=== PATIENT | female | born 1955 | race Caucasian/White ===

== ENCOUNTER 2018-06-16 04:08 | Emergency (ER) | payer MEDICARE, MEDICAID ==
[~2018-06-16] VITALS: Ht 149.9 cm; Wt 67.1 kg
[2018-06-16] MEDS ORDERED: HYDROXYZINE HCL25 M1 PO (04:26)
[2018-06-16] MEDS ORDERED: AMBIEN 5 MG TABL5 M1 PO (04:26)
[2018-06-16] MEDS ORDERED: WELLBUTRIN SR150 MG PO (04:27)
[2018-06-16] MEDS ORDERED: PROTONIX40 M1 PO (04:28)
[2018-06-16] MEDS ORDERED: SYNTHROID50 MCG PO (04:29)
[2018-06-16] MEDS ORDERED: TESSALON PERLE100 MG PO (04:30)
[2018-06-16] MEDS ORDERED: PERCOCET PO (04:31)
[2018-06-16] MEDS ORDERED: ZYRTEC10 M5 PO (04:31)
[2018-06-16] MEDS ORDERED: BENADRYL25 MG PO (04:34)
[2018-06-16] MEDS ORDERED: ECOTRIN325 MG PO (04:34)
[2018-06-16] MEDS ORDERED: PROPRANOLOL 1010 MG PO (04:35)
[2018-06-16] MEDS ORDERED: ESKALITH CR450 MG PO (04:35)
[2018-06-16] MEDS ORDERED: TOPAMAX 25 MG T25 M1 PO (04:36)
[2018-06-16] MEDS ORDERED: ERGOCALCIFEROL PO (04:38)
[2018-06-16 04:43] LABS: URINE BILIRUBIN NEGATIVE (Negative); URINE BLOOD TRACE (Negative); URINE CLARITY CLEAR; URINE COLOR STRAW; URINE GLUCOSE-RANDOM NEGATIVE (Negative); URINE KETONES 1+ (Negative); URINE LEUKOCYTES-REFLEX NEGATIVE (Negative); URINE NITRITE-REFLEX NEGATIVE (Negative); URINE PROTEIN NEGATIVE (Negative); URINE SPECIFIC GRAVITY <= 1.005 (1.005-1.030); URINE UROBILINOGEN 0.2 E.U./dl (0.2-1.0)
[2018-06-16] MEDS ORDERED: SENNA S TABLET1 EACH PO (04:44)
[2018-06-16] MEDS ORDERED: SINGULAIR 10 MG10 M1 PO (04:44)
[2018-06-16] MEDS ORDERED: MIRALAX17 GM PO (04:45)
[2018-06-16] MEDS ORDERED: TYLENOL325 MG PO (04:46)
[2018-06-16] MEDS ORDERED: CO Q-10100 MG PO (04:46)
[2018-06-16] MEDS ORDERED: LIPITOR 20 MG T20 M1 PO (04:47)
[2018-06-16 04:49] LABS: AMP/METHAMP Negative (Negative); BARBITURATES Negative (Negative); BENZODIAZEPINES Negative (Negative); COCAINE Negative (Negative); METHADONE Negative (Negative); OPIATES Negative (Negative); PCP Negative (Negative); THC Negative (Negative)
[2018-06-16] MEDS ORDERED: FOLBIC RF TABL1 EACH PO (04:49)
[2018-06-16 04:50] LABS: ABSOLUTE BASOPHILS 0.1 thou/uL (0.0-0.2); ABSOLUTE EOSINOPHILS 0.1 thou/uL (0.0-0.7); ABSOLUTE LYMPHOCYTES 1.5 thou/uL (0.8-5.3); ABSOLUTE MONOCYTES 0.5 thou/uL (0.0-1.2); ABSOLUTE NEUTROPHILS 5.9 thou/uL (1.6-8.1); BASOPHILS 1.3 %; EOSINOPHILS 1.1 %; HEMATOCRIT 33.7 % (37.0-47.0); HEMOGLOBIN 11.2 gm/dL (12.0-15.0); MCH 29.1 pg (26.0-34.0); MCHC 33.3 g/dL (28.0-37.0); MCV 87.3 fL (80.0-100.0); MONOCYTES 5.9 %; MPV 8.3 fl. (7.2-11.1); NUCLEATED RBCS 0 /100WBC; PLATELET COUNT* 260 thou/uL (150-400); POLYS 72.7 %; RBC 3.86 mil/uL (4.20-5.00); RDW-CV 13.5 % (10.5-14.5); WBC 8.1 thou/uL (4.0-11.0)
[2018-06-16 05:00] LABS: CALCIUM 9.7 mg/dL (8.5-10.1); CREATININE 1.2 mg/dL (0.6-1.3); POTASSIUM 3.2 mmol/L (3.5-5.1)
[2018-06-16 05:05] LABS: ALBUMIN 3.9 g/dL (3.4-5.0); TOTAL BILIRUBIN 0.4 mg/dL (<0.1-1.0)
[2018-06-16] MEDS ORDERED: BENTYL 10 MG CA10 M1 PO (05:09)
[2018-06-16 05:17] LABS: ALCOHOL < 10 mg/dL (<10); SALICYLATE < 2.8 mg/dL (2.8-20.0)
[2018-06-16 05:31] LABS: ACETAMINOPHEN < 2 ug/mL (10-30)
[2018-06-16 07:51] VITALS: BP 136/61
== END 2018-06-16 07:52 | disposition home or self-care (01) ==
LOC: M.ERS 04:08
PROVIDERS: Family Medicine
DX: F31.9 Bipolar disorder, unspecified (principal); E03.9 Hypothyroidism, unspecified; Z88.1 Allergy status to other antibiotic agents; Z88.5 Allergy status to narcotic agent

== ENCOUNTER → 2019-08-05 | Outpatient (CLI) | payer OTHER, MEDICAID ==
[~2019-08-05] MED LIST: AMBIEN 5 MG TABL5 M1 PO; BENADRYL25 MG PO; BENTYL 10 MG CA10 M1 PO; CO Q-10100 MG PO; ECOTRIN325 MG PO; ERGOCALCIFEROL PO; ESKALITH CR450 MG PO; FOLBIC RF TABL1 EACH PO; HYDROXYZINE HCL25 M1 PO; LIPITOR 20 MG T20 M1 PO; MIRALAX17 GM PO; PERCOCET PO; PROPRANOLOL 1010 MG PO; PROTONIX40 M1 PO; SENNA S TABLET1 EACH PO; SINGULAIR 10 MG10 M1 PO; SYNTHROID50 MCG PO; TESSALON PERLE100 MG PO; TOPAMAX 25 MG T25 M1 PO; TYLENOL325 MG PO; WELLBUTRIN SR150 MG PO; ZYRTEC10 M5 PO
== END ==
LOC: M.RAD 14:19
DX: Z12.31 Encounter for screening mammogram for malignant neoplasm of breast (principal)

== ENCOUNTER 2020-04-18 15:39 | Emergency (ER) | payer OTHER, MEDICAID ==
[~2020-04-18] VITALS: Ht 144.8 cm; Wt 68.0 kg
[2020-04-18 16:11] LABS: URINE BLOOD NEGATIVE (Negative); URINE CLARITY CLEAR; URINE COLOR YELLOW; URINE GLUCOSE-RANDOM NEGATIVE (Negative); URINE KETONES 1+ (Negative); URINE LEUKOCYTES-REFLEX NEGATIVE (Negative); URINE NITRITE-REFLEX NEGATIVE (Negative); URINE PROTEIN NEGATIVE (Negative); URINE SPECIFIC GRAVITY 1.025 (1.005-1.030)
[2020-04-18 16:13] LABS: ICTOTEST (BILI CONFIRMATORY) Negative (Negative); URINE BILIRUBIN 2+ (Negative)
[2020-04-18 16:19] LABS: AMP/METHAMP Negative (Negative); BARBITURATES Negative (Negative); BENZODIAZEPINES Negative (Negative); COCAINE Negative (Negative); METHADONE Negative (Negative); OPIATES Negative (Negative); PCP Negative (Negative); THC Negative (Negative)
[2020-04-18 16:23] LABS: ABSOLUTE BASOPHILS 0.1 thou/uL (0.0-0.2); ABSOLUTE EOSINOPHILS 0.1 thou/uL (0.0-0.7); ABSOLUTE LYMPHOCYTES 2.2 thou/uL (0.8-5.3); ABSOLUTE MONOCYTES 0.3 thou/uL (0.0-1.2); ABSOLUTE NEUTROPHILS 4.4 thou/uL (1.6-8.1); EOSINOPHILS 1.8 %; HEMATOCRIT 37.8 % (37.0-47.0); LYMPHOCYTES 31.1 %; MCHC 34.2 g/dL (28.0-37.0); MCV 87.7 fL (80.0-100.0); MONOCYTES 4.3 %; MPV 9.1 fl. (7.2-11.1); NUCLEATED RBCS 0 /100WBC; PLATELET COUNT* 223 thou/uL (150-400); POLYS 61.8 %; RBC 4.31 mil/uL (4.20-5.00); RDW-CV 15.2 % (10.5-14.5); WBC 7.1 thou/uL (4.0-11.0)
[2020-04-18 16:37] LABS: CALCIUM 8.5 mg/dL (8.5-10.1); POTASSIUM 3.2 mmol/L (3.5-5.1)
[2020-04-18 16:41] LABS: ALBUMIN 3.9 g/dL (3.4-5.0); TOTAL BILIRUBIN 0.5 mg/dL (<0.1-1.0); TOTAL PROTEIN 7.1 g/dL (6.4-8.2)
[2020-04-18 16:44] LABS: ACETAMINOPHEN < 2 ug/mL (10-30); ALCOHOL < 10 mg/dL (<10); SALICYLATE < 2.8 mg/dL (2.8-20.0)
[2020-04-18] MEDS ORDERED: LORATIDINE 10 M10 M1 PO (17:56)
[2020-04-18] MEDS ORDERED: CELECOXIB100 MG PO (17:57)
[2020-04-18] MEDS ORDERED: DIVALPROEX SOD500 M1 PO (17:57)
[2020-04-19 11:23] VITALS: BP 111/60
== END 2020-04-19 11:25 ==
LOC: M.ERS 15:39
PROVIDERS: Family Medicine
DX: F29 Unspecified psychosis not due to a substance or known physiological condition (principal); E03.9 Hypothyroidism, unspecified; F31.9 Bipolar disorder, unspecified; Z20.828 Contact with and (suspected) exposure to other viral communicable diseases; Z88.6 Allergy status to analgesic agent

== ENCOUNTER → 2021-05-24 | Outpatient (CLI) | payer OTHER, MEDICAID ==
[~2021-05-24] MED LIST changes: +CELECOXIB100 MG PO; +DIVALPROEX SOD500 M1 PO; +LORATIDINE 10 M10 M1 PO
== END ==
LOC: M.RAD 14:04
PROVIDERS: ATTEND Family Medicine
DX: Z12.31 Encounter for screening mammogram for malignant neoplasm of breast (principal)